=== PATIENT | female | born 1990 | race African-American/Black ===

== ENCOUNTER 2025-02-04 12:12 | Emergency (ER) | payer OTHER ==
[~2025-02-04] VITALS: Ht 165.1 cm; Wt 49.9 kg
[2025-02-04] MEDS ORDERED: KETOROLAC TROMETHAMINE INJ 30 MG/ML VIAL ONE (12:48)
[2025-02-04] MEDS: KETOROLAC TROMETHAMINE INJ 30 MG/ML VIAL IM ONE (12:54)
[2025-02-04] MEDS ORDERED: KETO10TA2 PO (13:04)
[2025-02-04 15:48] VITALS: BP 127/74; TEMP 98; O2SAT 98
== END 2025-02-04 15:48 | disposition home or self-care (01) ==
LOC: ER 12:14
DX: S42.492A Other displaced fracture of lower end of left humerus, initial encounter for closed fracture (principal); W18.39XA Other fall on same level, initial encounter; Y93.89 Activity, other specified; Y92.89 Other specified places as the place of occurrence of the external cause; Y99.8 Other external cause status
CPT/HCPCS: 99283; 96372; J1885